=== PATIENT | male | born 1960 | race African-American/Black ===

== ENCOUNTER 2017-02-06 23:25 | Inpatient (IN) | payer OTHER ==
[~2017-02-06] VITALS: Ht 177.8 cm; Wt 100.0 kg
[2017-02-07] MEDS ORDERED: SODIUM CHLORIDE 0.9% 1,000 ML IVB ONE (00:19)
[2017-02-07 00:27] LABS: Basophils # (auto) 0 uL; Basophils % (auto) 0.4 % (0.0-2.0); Eosinophils # (auto) 0 uL; Eosinophils % (auto) 0.4 % (0.0-7.0); Hematocrit 41.3 % (41.0-53.0); Hemoglobin 13.6 g/dL (13.5-17.5); Lymphocytes # (auto) 0.7 uL; Lymphocytes % (auto) 11.5 % (10.0-50.0); Mean Corpuscular Hemoglobin 30.3 pg (28.0-32.0); Mean Corpuscular Volume 91.6 fL (80.0-100.0); Mean Platelet Volume 7.9 fL (7.4-10.4); Monocytes # (auto) 0.6 uL; Monocytes % (auto) 9.9 % (0.0-12.0); Neutrophils # (auto) 4.9 uL; Neutrophils % (auto) 77.8 % (37.0-80.0); Platelet Count (auto) 214 10^3/uL (140-450); Red Cell Distribution Width 11.8 % (11.6-16.0); SUSPECT VIEW TRANSMISSION; White Blood Cell 6.2 10^3/uL (4.4-10.8)
[2017-02-07] MEDS ORDERED: ONDANSETRON HCL 4 MG/2 ML VIAL IV ONE (00:30)
[2017-02-07] MEDS ORDERED: PANTOPRAZOLE SODIUM 40 MG/10 ML VIAL IV ONE (00:30)
[2017-02-07] MEDS ORDERED: ASPirin 81 mg TAB PO ONE (00:30)
[2017-02-07] MEDS ORDERED: NITROGLYCERIN 0.2MG/HR TOPICAL PATCH TD ONE (00:30)
[2017-02-07 00:44] LABS: INR 1.01 (0.9-1.15); Partial Thromboplastin Time 29.5 sec (22.64-33.71); Prothrombin Time 10.9 sec (9.37-12.3)
[2017-02-07 00:57] LABS: Albumin 3.9 g/dL (3.4-5.0); Anion Gap 8 (5-15); Blood Urea Nitrogen 24 mg/dL (7-18); Calcium 7.9 mg/dL (8.5-10.1); Carbon Dioxide 25 mmol/L (21-32); Chloride 99 mmol/L (98-107); Glucose 123 mg/dL (74-106); Magnesium 1.4 mg/dL (1.6-2.6); Potassium 3.8 mmol/L (3.5-5.1); Sodium 132 mmol/L (136-145)
[2017-02-07 00:59] LABS: Aspartate Aminotransferase 37 U/L (15-37); BUN/Creatinine Ratio 15.2; GFR African American 58 mL/min; GFR Non-African American 48 mL/min
[2017-02-07 01:04] LABS: Alkaline Phosphatase 79 U/L (45-117); Bilirubin, Total 0.5 mg/dL (0.2-1.0); Total Protein 7.4 g/dL (6.4-8.2)
[2017-02-07 02:03] LABS: Urine RBC None Seen /hpf (0 - 3)
[2017-02-07 02:18] LABS: Urine Bilirubin Negative (Negative); Urine Blood Negative /uL (Negative); Urine Color Yellow (Yellow); Urine Glucose Normal (Normal); Urine Hyaline Cast FEW /lpf (0 - 2); Urine Ketone Negative (Negative); Urine Nitrite Negative (Negative); Urine Urobilinogen Normal (Negative)
[2017-02-07] MEDS ORDERED: NITROGLYCERIN 0.4 MG SL TAB SL PRN (06:15)
[2017-02-07] MEDS ORDERED: TEMAZEPAM 15 MG CAP PO PRN (06:15)
[2017-02-07] MEDS ORDERED: LOPERAMIDE HCL 2 MG CAP PO PRN (06:15)
[2017-02-07] MEDS ORDERED: HYDROcodone-ACET 5/325MG TAB PO PRN (06:15)
[2017-02-07] MEDS ORDERED: ACETAMINOPHEN 325 MG TAB PO PRN (06:15)
[2017-02-07] MEDS ORDERED: CALCIUM GLUC 4.65 MEQ/10ML 4.65 MEQ in SODIUM CHL 0.9% 50 ML IV ONE (06:30)
[2017-02-07] MEDS: MAGNESIUM SULFATE 1GM/100ML 100 ML IV SCH ×3 (07:37→10:57)
[2017-02-07] MEDS: MORPHINE SULF INJ 2 MG/ML SYRINGE 1ML IV PRN ×2 (07:43→15:56)
[2017-02-07] MEDS: ONDANSETRON HCL 4 MG/2 ML VIAL IV PRN ×2 (07:43→16:00)
[2017-02-07 09:31] VITALS: BP 109/63
[2017-02-07 09:58] VITALS: BP 109/63
[2017-02-07] MEDS ORDERED: FAMOTIDINE 20 MG TAB PO SCH (10:00)
[2017-02-07] MEDS ORDERED: ASPirin 81 mg TAB PO SCH (10:00)
[2017-02-07] MEDS ORDERED: LISINOPRIL 20 MG TAB PO SCH (10:00)
[2017-02-07] MEDS ORDERED: ENOXAPARIN SOD 40 MG/0.4 ML SYRINGE SC SCH (10:00)
[2017-02-07] MEDS ORDERED: DILTIAZEM HCL 180MG ER CAP PO SCH (10:00)
[2017-02-07] MEDS ORDERED: GABA-494 PO (11:31)
[2017-02-07] MEDS ORDERED: LORA1TAB12 PO ×2 (11:33→15:12)
[2017-02-07] MEDS ORDERED: OXY10CRT PO (11:33)
[2017-02-07] MEDS ORDERED: INDO50CA82 PO ×2 (11:35→15:12)
[2017-02-07] MEDS ORDERED: ATOR20TA50 PO (11:37)
[2017-02-07 12:30] VITALS: BP 103/55
[2017-02-07] MEDS ORDERED: GABA300C8 PO (15:12)
[2017-02-07] MEDS ORDERED: OXYC-650 PO (15:12)
[2017-02-07] MEDS ORDERED: MORP15TA43 PO (15:12)
[2017-02-07 17:02] VITALS: BP 113/66
[2017-02-07] MEDS ORDERED: OXYCODONE HCL 5MG TAB PO PRN (17:45)
[2017-02-07] MEDS ORDERED: ATORVASTATIN 20 MG TAB PO SCH (22:00)
[2017-02-07] MEDS ORDERED: PATIENTS OWN MEDICATION (simvastatin 20 MG) PO SCH ×2 (22:00)
[2017-02-07] MEDS ORDERED: GABAPENTIN 300 MG CAP PO SCH (22:00)
[2017-02-07] MEDS ORDERED: MORPHINE SULF 15mg ER tab PO SCH (22:00)
== END 2017-02-07 20:36 | disposition left against medical advice (07) | DRG 203 ==
LOC: ER 23:25 → TELE 23:26 → TELE-WESTW 02-07 08:30 → WEST WING 02-07 08:35 → TELE-WESTW 02-07 08:59
PROVIDERS: ADMIT Nurse Practitioner; ATTEND Internal Medicine Pulmonary Disease
DX: R07.89 Other chest pain (principal); N18.3 Chronic kidney disease, stage 3 (moderate); E87.1 Hypo-osmolality and hyponatremia; I12.9 Hypertensive chronic kidney disease with stage 1 through stage 4 chronic kidney disease, or unspecified chronic kidney disease; E78.5 Hyperlipidemia, unspecified; E66.9 Obesity, unspecified; Z68.31 Body mass index [BMI] 31.0-31.9, adult; Z88.6 Allergy status to analgesic agent; Z88.2 Allergy status to sulfonamides; Z88.8 Allergy status to other drugs, medicaments and biological substances
CPT/HCPCS: 36415; 71010; 80053; 81001; 83735; 83880; 84443; 84484; 85025; 85610; 85730; 93005; 94761; 96361; 96374; 96375; C9113; J2405